=== PATIENT | female | born 2000 | race Caucasian/White ===

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

== ENCOUNTER 2021-08-20 01:40 | Emergency (ER) | payer MEDICAID, OTHER ==
[2021-08-20 02:17] VITALS: BP 114/71
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
[2021-08-20] MEDS: LORazepam 2 MG/ML VIAL IV ONE (03:11)
[2021-08-20] MEDS: KETOROLAC 30 MG/1 ML INJ IV ONE (03:12)
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
== END 2021-08-20 05:52 | disposition home or self-care (01) ==
LOC: ED 01:40
DX: R07.89 Other chest pain (principal); R10.9 Unspecified abdominal pain; V89.2XXA Person injured in unspecified motor-vehicle accident, traffic, initial encounter; Y93.89 Activity, other specified; Y92.89 Other specified places as the place of occurrence of the external cause; Y99.8 Other external cause status
CPT/HCPCS: 71250; 74176; 96374; 96375; 99284; J1885; J2060